=== PATIENT | female | born 2000 | race Caucasian/White ===

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

== ENCOUNTER 2018-02-27 09:14 | Emergency (ER) | payer OTHER ==
[~2018-02-27] VITALS: Ht 144.8 cm; Wt 44.1 kg
[~2018-02-27 09:14] MED LIST changes: +ESCITALOPRAM OX10 MG PO; +LAMICTAL100 MG PO; +MIRENA1 EACH IY; +PRILOSEC20 MG PO; +VALTREX50 MG/ML PO; +VYVANSE30 MG PO
[2018-02-27 09:53] LABS: HEMOGLOBIN 12.9 G/DL (11.9-15.5); MCH 32.7 PG (29.0-34.0); MCHC 33.9 G/DL (30.0-36.0); MCV 96.4 FL (83-99); PLATELET COUNT 244 K/uL (156-360); RBC DIS.WIDTH-CV 12.2 % (11.8-14.6); RBC DIS.WIDTH-SD 43.8 % (39-53); RED BLOOD COUNT 3.94 M/uL (3.80-5.20); WHITE BLOOD COUNT 7.2 K/uL (4.1-10.2)
[2018-02-27 10:05] LABS: ALBUMIN 4.5 g/dL (3.2-4.8); CHLORIDE 103 mEq/L (99-109); POTASSIUM 3.8 mEq/L (3.7-5.4); SODIUM 138 mEq/L (136-147)
[2018-02-27 10:07] LABS: GLUCOSE 84 mg/dL (70-99); TOTAL PROTEIN 7.5 g/dL (6.4-8.3)
[2018-02-27 10:09] LABS: TOTAL BILIRUBIN 0.4 mg/dL (0.0-1.0)
[2018-02-27 10:11] LABS: ALKALINE PHOSPHATASE 57 IU/L (3-129); CREATININE 0.8 mg/dL (0.6-1.3); GFR ESTIMATE (CALCULATED) > 59 mL/min/
[2018-02-27 10:12] LABS: AST (GOT) 18 IU/L (2-34); UREA NITROGEN (BUN) 14 mg/dL (9-23)
[2018-02-27 10:13] LABS: DIRECT BILIRUBIN 0.1 mg/dL (0.0-0.3)
[2018-02-27 10:14] LABS: ALT (GPT) 9 IU/L (3-49); LIPASE 12 U/L (1.0-51.0)
[2018-02-27 10:59] LABS: APPEARANCE SL.HAZY ((CLEAR)); BILIRUBIN NEGATIVE; BLOOD NEGATIVE; COLOR YELLOW ((YELLOW)); GLUCOSE (STRIP) NEGATIVE; KETONES 5; LEUKOCYTES NEGATIVE; NITRITE NEGATIVE; PROTEIN (STRIP) 30; UROBILINOGEN 0.2 MG/DL (0.2-1.0)
[2018-02-27 11:15] LABS: BACTERIA RARE /HPF; CALCIUM OXALATE CRYSTALS 3+ /HPF; EPITHELIAL CELLS 1+ /HPF; HYALINE CASTS 0-5 /LPF; MUCUS 2+ /LPF
[2018-02-27] MEDS ORDERED: NAPROSYN500 MG PO (11:37)
[2018-02-27] MEDS ORDERED: ZOFRAN4 MG PO (11:37)
[2018-02-27 11:53] VITALS: BP 99/53
== END 2018-02-27 11:55 | disposition home or self-care (01) ==
LOC: EME 09:14
PROVIDERS: Emergency Medicine
DX: R10.9 Unspecified abdominal pain (principal); K21.9 Gastro-esophageal reflux disease without esophagitis; B00.9 Herpesviral infection, unspecified; F31.9 Bipolar disorder, unspecified; F32.9 Major depressive disorder, single episode, unspecified; F17.200 Nicotine dependence, unspecified, uncomplicated; Z97.5 Presence of (intrauterine) contraceptive device
CPT/HCPCS: 74176; 76705; 80048; 80076; 81003; 83690; 85027; 87086; 99281; 99285; J1885; J2405; J7030